=== PATIENT | female | born 1945 | race Caucasian/White ===

== ENCOUNTER 2016-12-17 18:11 | Inpatient (IN) | payer MEDICARE, OTHER ==
[~2016-12-17] VITALS: Ht 167.6 cm; Wt 81.6 kg
[2016-12-17 18:57] LABS: HEMOGLOBIN 16.3 gm/dl (12.3-15.3); RED BLOOD COUNT 5.52 M/UL (4.00-5.10); WHITE BLOOD COUNT 12.1 K/UL (4.5-11.0)
[2016-12-17] MEDS ORDERED: ELAVIL 25 MG TA25 MG PO (23:48)
[2016-12-17] MEDS ORDERED: ATENOLOL-CHLOR1 EAC1 PO (23:48)
[2016-12-17] MEDS ORDERED: METFORMIN HCL1000 M1 PO (23:48)
[2016-12-17] MEDS ORDERED: GLUCOTROL5 MG PO (23:49)
[2016-12-17] MEDS ORDERED: COZAAR100 MG PO (23:50)
[2016-12-17] MEDS ORDERED: VISTARIL 25 MG25 MG PO (23:50)
[2016-12-17] MEDS ORDERED: PRAVACHOL20 MG PO (23:51)
[2016-12-18] MEDS ORDERED: VITAMIN B-121000 MCG PO (00:40)
[2016-12-18] MEDS ORDERED: ADULT LOW DOSE81 MG PO (00:40)
[2016-12-18] MEDS ORDERED: MEGA RED PO (01:11)
[2016-12-18 04:16] LABS: HEMOGLOBIN 15.1 gm/dl (12.3-15.3); RED BLOOD COUNT 5.06 M/UL (4.00-5.10)
[2016-12-18 04:18] LABS: WHITE BLOOD COUNT 8.2 K/UL (4.5-11.0)
[2016-12-19 06:13] LABS: HEMOGLOBIN 13.4 gm/dl (12.3-15.3)
[2016-12-19 06:15] LABS: RED BLOOD COUNT 4.54 M/UL (4.00-5.10); WHITE BLOOD COUNT 5.8 K/UL (4.5-11.0)
[2016-12-19 06:27] LABS: BUN/CREATININE RATIO 22 (0-10)
[2016-12-19] MEDS ORDERED: TENORMIN 50 MG50 MG PO (15:34)
[2016-12-19] MEDS ORDERED: CEFUROXIME500 MG PO (15:38)
[2016-12-19] MEDS ORDERED: TYLENOL 325MG325 MG PO (16:15)
[2016-12-19] MEDS ORDERED: METFORMIN HCL1000 MG PO (16:30)
== END 2016-12-19 16:56 | disposition home or self-care (01) | DRG 871 ==
LOC: ER1 18:11 → ZEROF 21:50 → M/S 21:50 → ER1 22:22 → M/S 22:29
PROVIDERS: Emergency Medicine; Physician Assistant Medical; ADMIT Internal Medicine
DX: A41.9 Sepsis, unspecified organism (principal); G93.41 Metabolic encephalopathy; N30.00 Acute cystitis without hematuria; E87.1 Hypo-osmolality and hyponatremia; R65.20 Severe sepsis without septic shock; I44.7 Left bundle-branch block, unspecified; E87.6 Hypokalemia; T50.2X5A Adverse effect of carbonic-anhydrase inhibitors, benzothiadiazides and other diuretics, initial encounter; E83.42 Hypomagnesemia; I10 Essential (primary) hypertension; E11.9 Type 2 diabetes mellitus without complications; R00.2 Palpitations; E78.5 Hyperlipidemia, unspecified; I27.2 Other secondary pulmonary hypertension; I08.3 Combined rheumatic disorders of mitral, aortic and tricuspid valves; Z79.84 Long term (current) use of oral hypoglycemic drugs; Z79.82 Long term (current) use of aspirin; Z79.899 Other long term (current) drug therapy; Z88.5 Allergy status to narcotic agent; Z90.710 Acquired absence of both cervix and uterus; Z98.890 Other specified postprocedural states; Z84.1 Family history of disorders of kidney and ureter; Z82.49 Family history of ischemic heart disease and other diseases of the circulatory system
CPT/HCPCS: ECHO; 36415; 70450; 71010; 80048; 80053; 81001; 82009; 82550; 82553; 82962; 83605; 83735; 83874; 83880; 84132; 84439; 84443; 84484; 85025; 85027; 87040; 87077; 87086; 87186; 93005; 93306; 96374; 99285; J0696; J1650; J2543; J7030; J7050